=== PATIENT | female | born 1965 | race Caucasian/White ===

== ENCOUNTER → 2024-04-17 11:25 | Outpatient (REF) | payer MEDICARE, OTHER, SELFPAY | LOC: RAD 11:25 | PROVIDERS: ATTENDING PHYSICIAN Urology | DX: M62.89 Other specified disorders of muscle (principal); N31.9 Neuromuscular dysfunction of bladder, unspecified; R33.9 Retention of urine, unspecified | CPT/HCPCS: 76770 ==

== ENCOUNTER → 2024-05-02 14:53 | Outpatient (REF) | payer MEDICARE, OTHER, SELFPAY | LOC: WDC 14:53 | PROVIDERS: ATTENDING PHYSICIAN Physician Assistant Medical | DX: Z12.31 Encounter for screening mammogram for malignant neoplasm of breast (principal) | CPT/HCPCS: 77063; 77067 ==

== ENCOUNTER → 2024-05-15 16:55 | Outpatient (REF) | payer MEDICARE, OTHER, SELFPAY ==
[2024-05-15 17:27] LABS: ALT (SGPT) 19 U/L (0-35); AST (SGOT) 26 U/L (14-36); Albumin 4.6 g/dl (3.5-5.0); Alkaline Phosphatase 84 U/L (38-126); Blood Urea Nitrogen 13 mg/dl (7-17); Calcium 9.6 mg/dl (8.4-10.2); Carbon Dioxide 25 mmol/L (22-30); Chloride 96 mmol/L (98-107); Glucose 105 mg/dl (70-99); Potassium 3.6 mmol/L (3.5-5.1); Sodium 131 mmol/L (135-145); Total Bilirubin 0.8 mg/dl (0.2-1.3); Total Protein 6.9 g/dl (6.3-8.2); eGFR > 60.00
== END ==
LOC: RAD 16:55
PROVIDERS: ATTENDING PHYSICIAN Physician Assistant Medical
DX: R10.32 Left lower quadrant pain (principal); N30.20 Other chronic cystitis without hematuria; N34.3 Urethral syndrome, unspecified
CPT/HCPCS: 36415; 74177; 80053; Q9967

== ENCOUNTER 2024-05-15 19:56 | Emergency (ER) | payer MEDICARE, OTHER, SELFPAY ==
[2024-05-15 19:58] VITALS: BP 113/76
--- NOTE | 2024-05-15 21:05 | ED.GENMED ---
History of Present Illness
General
Chief Complaint: Abdominal Symptoms
Source: patient
Exam Limitations: none
Time Seen by Provider: 05/15/24 20:25
Nursing documentation reviewed up to this point in time: agreed with
History of Present Illness
History of Present Illness:
Patient to ED with LLQ abdominal pain. She was sent for outpatient CT by PCP. Ct shows mild sigmoid diverticulitits. No perforation or abscess. She has an allergy to PCN and quinolones. Sent to ED for Antibiotc prescription. Denies
fever/chills. No prior historyof same.
Past History
Past History
ED Past Medical History: Other (Irritable bowel syndrome, migraines, chronic back and neck pain)
Social History
Tobacco: Non-smoker
Alcohol: None
Drug: None
Review of Systems
Review of Systems
Allergies reviewed?: Yes
All Other Systems: ROS reviewed and negative except as documented in HPI and ROS
Constitutional: Reports no symptoms
EENT: Reports no symptoms
Respiratory: Reports no symptoms
Cardiac: Reports no symptoms
ABD/GI: Reports abdominal pain (lower abdominal pain and cramping)
: Reports no symptoms
Musculoskeletal: Reports no symptoms
Skin: Reports no symptoms
Neurological: Reports no symptoms
Psychiatric: Reports no symptoms
Phy Exam
General Physical Exam
General Presentation: well appearing and no apparent distress
General age: appears stated age
General Skin: warm and dry
General Habitus: normal
General Mental: alert
General Hydration: appears well hydrated
Gastrointestinal Exam
Gastrointestinal Exam: normal bowel sounds, soft, no organomegaly, non distended and no cva tenderness
Palpation: left upper quadrant: No tenderness, left lower quadrant: Mild tenderness, right upper quadrant: No tenderness and right lower quadrant: No tenderness
Musculoskeletal Exam
Musculoskeletal Exam: full ROM
Skin Exam
Skin Exam: normal color, warm/dry and no rash
Psychiatric Exam
Psychiatric Exam: normal mood/affect
Course
Orders/Labs/Results
Orders:
Orders
05/15/24 20:40
MetroNIDAZOLE [Flagyl] 500 mg PO NOW STA
Sulfamethox./Trimethoprim Ds [Bactrim Ds 800 mg/160 mg] 1 tablet PO NOW STA
05/15/24 21:16
Complete Blood Count/With Diff Urgent
Ondansetron Orally Disint [Zofran Odt (Orally Disintegrating)] 4 mg PO NOW STA
Abnormal Lab Results
05/15/24
21:16
WBC 11.3 H 10^3/uL
(4.8-10.8)
RBC 3.99 L 10^6/uL
(4.20-5.40)
Hct 35.9 L %
(37.0-47.0)
MCH 31.8 H pg
(27.0-31.0)
Absolute Neuts (auto) 9.1 H 10^3/uL
(1.4-6.5)
Absolute Monos (auto) 0.9 H 10^3/uL
(0.1-0.6)
Neutrophils % 80.1 H %
(42.2-75.2)
Lymphocytes % 11.3 L %
(20.5-51.1)
05/15/24 21:16
Vital Signs
Initial and Last Documented VS:
Initial Vital Signs
Temp Pulse Resp BP Pulse Ox
99.0 F 101 18 113/76 99
05/15/24 19:58 05/15/24 19:58 05/15/24 19:58 05/15/24 19:58 05/15/24 19:58
Last Documented Vital Signs
Temp Pulse Resp BP Pulse Ox
99.0 F 98 19 118/99 99
05/15/24 19:58 05/15/24 21:39 05/15/24 21:39 05/15/24 21:39 05/15/24 21:39
*Radiology
Radiology exam reviewed: other (Outpatient CT results reviewed)
*Pulse Oximetry
Patient hypoxic: no
*Critical Care Note
Total Time (30-74mins, 75-104mins- exclusive of procedures): Not Applicable
ED Attending Note
-
Portions of this chart may have been created with voice recognition software.� Occasional wrong word or��sound alike� substitutions may have occurred due to the inherent limitations of voice recognition software.
Discharge Plan
Departure
Patient Disposition: Home (Routine Discharge)
Date of Disposition: 05/15/24
Time of Disposition: 21:26
Patient with high blood pressure during this ER visit?: No
Condition: Good
Covid-19: Not Applicable
Discharge Problem:
Diverticulitis
Instructions: Clear Liquid Diet, Diverticulitis (DC)
Prescriptions:
New
sulfamethoxazole-trimethoprim [Bactrim DS] 800-160 mg tablet
1 tab PO BID Qty: 20 0RF
ondansetron HCl 4 mg tablet
4 mg PO TID PRN (Reason: nausea and vomiting) 4 Days Qty: 12 0RF
metronidazole 500 mg tablet
500 mg PO TID Qty: 30 0RF
No Action
Control Pill
1 tab DAILY
Fioricet
1 tab PRN
Lexapro
10 mg DAILY
Metoprolol
12.5 mg PRN
Tylenol #3
1 tab Q4H PRN
Xanax
1 mg QID
Ambien Cr
12.5 mg PRN
Ibuprofen
1 tab TID PRN
Ponstel
1 tab Q6H PRN
Referrals:
Evan Contreras MD [Family Provider] - Follow up in 2-3 days
Walp,Julissa K., DO [Active] - Next open appointment
Activity Restrictions/Additional Instructions:
Return to the emergency department immediately for any changes in/worsening of your symptoms
Interventions
Interventions:
*Risk Screen - Suicide Last Done: 05/15/24 19:58
*General Assessment Last Done: 05/15/24 19:58
*Neglect/Abuse Screening Last Done: 05/15/24 19:58
ED- Fall Risk Assessment Last Done: 05/15/24 21:38
*Nursing Disposition Last Done: 05/15/24 21:39
PG-[id number]-Ursqjsvnyq Assessment Last Done: 05/15/24 21:38
Discharge Date and Time
Discharge Date/Time: 05/15/24 21:39
Print Language: TANZANIAN
[2024-05-15] MEDS: ZOFRAN ODT (ORALLY DISINTEGRATING) 4 MG PO (21:18)
[2024-05-15 21:22] LABS: % Basophils 0.3 % (0-2); % Immature Granulocytes 0.4 % (0-0.5); % Lymphocytes 11.3 % (20.5-51.1); % Monocytes 7.9 % (1.7-9.3); % Neutrophils 80.1 % (42.2-75.2); Absolute Lymphocytes 1.3 10^3/uL (1.2-3.4); Absolute Monocytes 0.9 10^3/uL (0.1-0.6); Absolute Neutrophils 9.1 10^3/uL (1.4-6.5); Hematocrit 35.9 % (37.0-47.0); Hemoglobin 12.7 g/dL (12.0-16.0); Mean Corp Hgb Conc. 35.4 g/dL (33.0-37.0); Mean Corpuscular Hgb 31.8 pg (27.0-31.0); Nucleated Red Blood Cells % 0 %; Platelet Count 214 10^3/uL (130-400); Red Blood Cell Count 3.99 10^6/uL (4.20-5.40); Red Cell Dist. Width 12.4 % (11.5-14.5); White Blood Cell Count 11.3 10^3/uL (4.8-10.8)
[2024-05-15] MEDS: FLAGYL 500 MG PO (21:30)
[2024-05-15] MEDS: BACTRIM DS 800 MG/160 MG 1 TABLET PO (21:30)
[2024-05-15 21:39] VITALS: BP 118/99
== END 2024-05-15 21:39 | disposition home or self-care (01) ==
LOC: EMR 19:56
PROVIDERS: Nurse Practitioner; EMERGENCY PHYSICIAN Emergency Medicine; FAMILY PHYSICIAN Family Medicine
DX: K57.32 Diverticulitis of large intestine without perforation or abscess without bleeding (principal); K58.9 Irritable bowel syndrome, unspecified; G43.909 Migraine, unspecified, not intractable, without status migrainosus; M54.9 Dorsalgia, unspecified; M54.2 Cervicalgia; J45.909 Unspecified asthma, uncomplicated; G89.29 Other chronic pain; Z88.0 Allergy status to penicillin; Z88.1 Allergy status to other antibiotic agents; Z88.3 Allergy status to other anti-infective agents; Z88.8 Allergy status to other drugs, medicaments and biological substances
CPT/HCPCS: 99283; 85025

== ENCOUNTER 2024-06-04 13:57 | Emergency (ER) | payer MEDICARE, OTHER, SELFPAY ==
[2024-06-04 14:08] VITALS: BP 127/81
[2024-06-04 14:27] LABS: % Basophils 0.9 % (0-2); % Eosinophils 0.6 % (0-6); % Immature Granulocytes 0.2 % (0-0.5); % Lymphocytes 27.6 % (20.5-51.1); % Monocytes 8.9 % (1.7-9.3); % Neutrophils 61.8 % (42.2-75.2); Absolute Lymphocytes 1.3 10^3/uL (1.2-3.4); Absolute Monocytes 0.4 10^3/uL (0.1-0.6); Absolute Neutrophils 2.9 10^3/uL (1.4-6.5); Hematocrit 42.7 % (37.0-47.0); Hemoglobin 14.8 g/dL (12.0-16.0); Mean Corp Hgb Conc. 34.7 g/dL (33.0-37.0); Mean Corpuscular Hgb 32.7 pg (27.0-31.0); Mean Corpuscular Volume 94.5 fL (81.0-99.0); Mean Platelet Volume 9.8 fL (7.4-10.4); Nucleated Red Blood Cells % 0 %; Platelet Count 313 10^3/uL (130-400); Red Blood Cell Count 4.52 10^6/uL (4.20-5.40); Red Cell Dist. Width 12.4 % (11.5-14.5); White Blood Cell Count 4.6 10^3/uL (4.8-10.8)
[2024-06-04 15:12] LABS: ALT (SGPT) 25 U/L (0-35); AST (SGOT) 30 U/L (14-36); Albumin 4.8 g/dl (3.5-5.0); Alkaline Phosphatase 65 U/L (38-126); Blood Urea Nitrogen 13 mg/dl (7-17); Calcium 9.9 mg/dl (8.4-10.2); Glucose 132 mg/dl (70-99); Lipase 59 U/L (23-300); Total Bilirubin 0.3 mg/dl (0.2-1.3); Total Protein 7.4 g/dl (6.3-8.2); eGFR > 60.00
[2024-06-04 15:51] LABS: Carbon Dioxide 24 mmol/L (22-30); Chloride 103 mmol/L (98-107); Potassium 4.4 mmol/L (3.5-5.1); Sodium 135 mmol/L (135-145)
--- NOTE | 2024-06-04 16:32 | ED.GENMED ---
History of Present Illness
<Roman Harman, DO - Last Filed: 06/04/24 16:42>
General
Chief Complaint: Musculo-Skeletal Complaint
Time Seen by Provider: 06/04/24 15:58
<Lulu Morton MD, Resident - Last Filed: 06/04/24 16:44>
General
Source: patient
Exam Limitations: none
Nursing documentation reviewed up to this point in time: agreed with
Travel History
Have you traveled to any high risk areas for coronavirus over the past 14 days?: No
Have you had any contact with someone who has COVID-19?: No
Do you have any symptoms of coronavirus? Fever > 100 degrees, chills, cough, shortness of breath, sore throat, loss of taste or smell, muscle aches, or headache?: No
History of Present Illness
History of Present Illness:
The patient is a 59 year old female who presented to the ER this pm complaining from low back pain and lower left abdominal pain. The patient reported that she was diagnosed with diverticulitis about 3 weeks ago after she has an abdominal CT at ER.
She reported that she completed her 10 days of antibiotic cure about one week ago and has an appointment with GI physician this week on . She also reported her back pain increased recently this week after started to stand more hours. She
reports her pain but it does not radiate to her legs and stays on her lower back area.
If applicable-neuro sx onset
Onset of symptoms known: Yes
Date of onset of symptoms: 06/04/24
Time pt last seen normal is known: No
Past History
<Lulu Morton MD, Resident - Last Filed: 06/04/24 16:44>
Past History
ED Past Medical History: Other (Irritable bowel syndrome, migraines, chronic back and neck pain)
Social History
Tobacco: Non-smoker
Alcohol: None
Drug: None
Phy Exam
<Lulu Morton MD, Resident - Last Filed: 06/04/24 16:44>
Physical Exam
Physical Exam:
Abdominal area examination was normal. No rebound, guarding were found on abdominal area.Minimal tenderness was found on left lower abdominal area His bilateral lower extremity motor findings were normal. Muscle motor exam on bilateral lower
extremities were 4+/5
General Physical Exam
General Presentation: well appearing and moderate distress
General age: appears stated age
General Skin: warm and dry
General Habitus: normal
General Mental: alert
General Hydration: appears well hydrated
Pulmonary Exam
Pulmonary Exam: no respiratory distress
Cough: no cough
Gastrointestinal Exam
Gastrointestinal Exam: soft, non distended and no cva tenderness
Palpation: left lower quadrant: Minimal tenderness (No guarding , no rebund )
Course
<Roman Harman, DO - Last Filed: 06/04/24 16:42>
Orders/Labs/Results
Orders:
Orders
06/04/24 14:13
CR Lumbar Spine Comp Min 4 Vw* Urgent
Comment:
Reason For Exam: pain
06/04/24 14:16
CMP [Comprehensive Metabolic Panel] Urgent
Complete Blood Count/With Diff Urgent
Lipase Urgent
06/04/24 16:31
Ketorolac [Toradol] 30 mg IM NOW STA
Abnormal Lab Results
06/04/24
14:16
WBC 4.6 L 10^3/uL
(4.8-10.8)
MCH 32.7 H pg
(27.0-31.0)
Glucose 132 H mg/dl
(70-99)
06/04/24 14:16
06/04/24 14:16
Vital Signs
Initial and Last Documented VS:
Initial Vital Signs
Temp Pulse Resp BP Pulse Ox
98.2 F 114 16 127/81 96
06/04/24 14:08 06/04/24 14:08 06/04/24 14:08 06/04/24 14:08 06/04/24 14:08
Last Documented Vital Signs
Temp Pulse Resp BP Pulse Ox
98.2 F 114 16 127/81 96
06/04/24 14:08 06/04/24 14:08 06/04/24 14:08 06/04/24 14:08 06/04/24 14:08
<Lulu Morton MD, Resident - Last Filed: 06/04/24 16:44>
Orders/Labs/Results
Orders:
Orders
06/04/24 14:13
CR Lumbar Spine Comp Min 4 Vw* Urgent
Comment:
Reason For Exam: pain
06/04/24 14:16
CMP [Comprehensive Metabolic Panel] Urgent
Complete Blood Count/With Diff Urgent
Lipase Urgent
06/04/24 16:31
Ketorolac [Toradol] 30 mg IM NOW STA
Abnormal Lab Results
06/04/24
14:16
WBC 4.6 L 10^3/uL
(4.8-10.8)
MCH 32.7 H pg
(27.0-31.0)
Glucose 132 H mg/dl
(70-99)
06/04/24 14:16
06/04/24 14:16
Vital Signs
Initial and Last Documented VS:
Initial Vital Signs
Temp Pulse Resp BP Pulse Ox
98.2 F 114 16 127/81 96
06/04/24 14:08 06/04/24 14:08 06/04/24 14:08 06/04/24 14:08 06/04/24 14:08
Last Documented Vital Signs
Temp Pulse Resp BP Pulse Ox
98.2 F 114 16 127/81 96
06/04/24 14:08 06/04/24 14:08 06/04/24 14:08 06/04/24 14:08 06/04/24 14:08
<Roman Harman DO - Last Filed: 06/04/24 16:42>
MDM/Problems Addressed
Differential Diagnosis Includes:
Radiculopathy, low back pain, no signs of active spinal infection, doubt diverticulitis
MDM/Problems Addressed:
Back pain
Chronic conditions affecting care:
Back back
Acute Exacerbation and/or Progression of Chronic Illness:
Back pain
<Roman Harman DO - Last Filed: 06/04/24 16:42>
*Radiology
Radiology exam reviewed: radiology read reviewed
*Pulse Oximetry
Patient hypoxic: no
*Critical Care Note
Total Time (30-74mins, 75-104mins- exclusive of procedures): Not Applicable
Data Reviewed
Source: patient
ED Attending Note
<Roman Harman DO - Last Filed: 06/04/24 16:42>
ED Attending Note
Patient seen and examined by attending physician: Yes
I performed a history and physical exam of patient and discussed management with resident, I reviewed resident's note and agree with documented findings and plan of care.: Yes
ED Attending Note:
Seen with resident examined independently chronic low back pain status post fusion with numerous meds recently started on gabapentin, has Soma and Vicodin which she does not use because she takes benzo, anxiety, Toradol as were previously she has
had an ulcer, also recently getting over sick with diverticulitis treated with antibiotics looks well here labs noted x-ray noted will give dose of Toradol short burst of steroids encouraged to keep appointments with her outpatient physicians
<Lulu Morton MD, Resident - Last Filed: 06/04/24 16:44>
-
Portions of this chart may have been created with voice recognition software.� Occasional wrong word or��sound alike� substitutions may have occurred due to the inherent limitations of voice recognition software.
Discharge Plan
Departure
Date of Disposition: 06/04/24
Prescriptions:
No Action
Control Pill
1 tab DAILY
Fioricet
1 tab PRN
Lexapro
10 mg DAILY
Metoprolol
12.5 mg PRN
Tylenol #3
1 tab Q4H PRN
Xanax
1 mg QID
Ambien Cr
12.5 mg PRN
Ibuprofen
1 tab TID PRN
Ponstel
1 tab Q6H PRN
sulfamethoxazole-trimethoprim [Bactrim DS] 800-160 mg tablet
1 tab PO BID Qty: 20 0RF
ondansetron HCl 4 mg tablet
4 mg PO TID PRN (Reason: nausea and vomiting) 4 Days Qty: 12 0RF
metronidazole 500 mg tablet
500 mg PO TID Qty: 30 0RF
Referrals:
UNKNOWN - PT DOES,NOT KNOW [Family Provider] -
Interventions
Interventions:
*General Assessment Last Done: 06/04/24 14:08
*ED COVID-19 Vaccine History Last Done: 06/04/24 14:08
Discharge Date and Time
Print Language: ANGOLAN
[2024-06-04] MEDS: TORADOL 30 MG IM (16:56)
[2024-06-04 18:25] VITALS: BP 125/78
== END 2024-06-04 18:20 | disposition home or self-care (01) ==
LOC: EMR 13:57
PROVIDERS: Emergency Medicine; EMERGENCY PHYSICIAN Emergency Medicine; FAMILY PHYSICIAN Family Medicine
DX: R10.32 Left lower quadrant pain (principal); M54.50 Low back pain, unspecified; K58.9 Irritable bowel syndrome, unspecified; G43.909 Migraine, unspecified, not intractable, without status migrainosus; M54.2 Cervicalgia; K57.92 Diverticulitis of intestine, part unspecified, without perforation or abscess without bleeding; G89.29 Other chronic pain; Z98.1 Arthrodesis status; Z88.1 Allergy status to other antibiotic agents; Z88.3 Allergy status to other anti-infective agents; Z88.0 Allergy status to penicillin; Z88.8 Allergy status to other drugs, medicaments and biological substances
CPT/HCPCS: 99284; 96372; 72110; 80053; 83690; 85025